=== PATIENT | male | born 1950 | race African-American/Black ===

== ENCOUNTER 2018-07-26 07:04 | Emergency (ER) | payer MEDICARE, OTHER ==
[~2018-07-26] VITALS: Ht 185.4 cm; Wt 86.0 kg
[2018-07-26 08:48] LABS: HEMATOCRIT. 40.6 % (42.0-52.0); HEMOGLOBIN. 13.8 g/dL (14.0-18.0); MEAN CORPUSCULAR HEMOGLOBIN 33.6 pg (28.0-32.0); MEAN CORPUSCULAR VOLUME 98.6 fL (80.0-94.0); MEAN PLATELET VOLUME 8.6 fl (7.4-10.4); PLATELET 241 x1000/uL (130-400); RED BLOOD CELL COUNT 4.11 mill/uL (4.7-6.1); RED CELL DISTRIBUTION WIDTH 13.7 % (11.6-14.6)
[2018-07-26 08:54] LABS: CHLORIDE 105 mEq/L (98-107)
[2018-07-26 08:57] LABS: ETHANOL BLOOD < 10 mg/dL
[2018-07-26 09:39] LABS: PLATELET ESTIMATE NORMAL
[2018-07-26] MEDS ORDERED: OLANZAPINE 5MG TABLET ODT PO ONE (10:15)
[2018-07-26] MEDS ORDERED: SODIUM CHLORIDE 0.9% 1,000 ML IV ONE (12:00)
[2018-07-26 15:02] VITALS: BP 171/94
[2018-07-26] MEDS ORDERED: LORAZEPAM 2MG/ML CPJ IM STA (16:40)
[2018-07-26] MEDS ORDERED: OLANZAPINE 10 MG/VIAL IM ONE (16:45)
== END 2018-07-26 17:00 | disposition left against medical advice (07) ==
LOC: ER 07:04 → CANBEDREQ 18:05
DX: S31.801A Laceration without foreign body of unspecified buttock, initial encounter (principal); F20.9 Schizophrenia, unspecified; R06.02 Shortness of breath; W26.0XXA Contact with knife, initial encounter; Y93.02 Activity, running; Y92.488 Other paved roadways as the place of occurrence of the external cause; Y99.8 Other external cause status
CPT/HCPCS: 36415; 71045; 80048; 80307; 80329; 85025; 93005; 96360; 99285; G0482; J3490; J7030; J2060